=== PATIENT | female | born 1930 | race Caucasian/White ===

== ENCOUNTER 2018-04-05 21:41 | Emergency (ER) | payer MEDICARE, MEDICAID ==
[~2018-04-05] VITALS: Ht 157.5 cm; Wt 49.9 kg
--- NOTE | 2018-04-05 23:00 | NUR ---
ED Nurse Note: pt brought in by DAVIDE, per EMS report, pt was in bus for a while and at the end of bus stop pt didn't get off and stayed, business applications specialist called JERI, and when [employer] asked where she stays, she stated she can't remember where she stays at and unable to recall. [employer] drove pt around for two hours but unable to find out where she stays. [employer] called JOSUÉD and pt was brought into ED, pt currently has no medical complaints, denies marsh/pain/head injury/syncope/loc. Pt AA&ox4, gcs=15. Noted pt wearing a wristband with phone number and pt's name on it. Upon calling the halfway, [facility] in [place], one of the direct care supervisor stated she was discharged on feb 21 and hasn't heard from her. Pt refused to state where she is going and refused to give information regarding pt's family member states "They are already in critical condition and going through a lot, don't call them". Attempted contacting friend Valentin, pt's friend states he was unaware of pt's conditon and location. Pt was provided with sandwich and juice, refused to go into room and states she wants to stay in chair. vss. airway intact and resp even and unlabored. will cont monitor.
--- NOTE | 2018-04-06 01:28 | Emergency Room Report ---
History of Present Illness General Source: Patient Present Illness HPI This is an 88-year-old female with no past medical history. She presents with chief complaint of general exam. She was on the bus all day. When the route end, she was still there so channel business manager called 911. Patient does not know where she lives so police call ambulance. Denies any complaint. She said that she lives in [place] and did not give a particular address. She was only giving the bus route. She refused to divulge any information regarding family a phone number. She would not let me look into her luggage. She did have an armband with a phone number on it. Paramedics said when they called this number it was a jail in [place]. I called his phone number and spoke with the nurse who remembered her. She was admitted there at the end of January and discharge February 21. He was able to get information on the next of kin. I called the number listed as next of kin and spoke with that person. He said that he is a distant cousin and patient lists his number and address for next of kin. He received her male and she will occasionally coming get it. He said that patient has nowhere to live. She goes back and forth from [place] to [place]. She will occasional stay in a jail or hospital. She does have a family member in [place]. He does not know the name. Patient said she does not want to call anybody. 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 She denies any pain. She denies any medical problem. She does not give me the rights to contact anybody. Patient History Past Medical History: see triage record, old chart reviewed Past Surgical History: other Pertinent Family History: none Social History: Denies: smoking Now: No Immunizations: other Reviewed Nursing Documentation: PMH: Agreed; PSxH: Agreed Review of Systems Eye: Denies: eye pain, blurred vision ENT: Denies: ear pain, nose congestion, throat swelling Respiratory: Denies: cough, shortness of breath Cardiovascular: Denies: chest pain, palpitations Gastrointestinal: Denies: abdominal pain, diarrhea, nausea, vomiting Musculoskeletal: Denies: back pain, joint pain Skin: Denies: rash Neurological: Denies: headache, numbness Endocrine: Denies: increased thirst, increased urine Hematologic/Lymphatic: Denies: easy bruising All Other Systems: negative except mentioned in HPI Physical Exam patient refused vitals Sp02 EP Interpretation: reviewed, normal General Appearance: well appearing, no apparent distress, alert Head: normocephalic, atraumatic Eyes: bilateral eye PERRL, bilateral eye EOMI ENT: hearing grossly normal, normal pharynx Neck: full range of motion, supple, no meningismus Respiratory: chest non-tender, lungs clear, normal breath sounds Cardiovascular #1: regular rate, rhythm, no murmur Gastrointestinal: normal bowel sounds, non tender, no mass, no organomegaly, no bruit, non-distended Musculoskeletal: back normal, gait/station normal, normal range of motion Psychiatric: mood/affect normal Skin: warm/dry Medical Decision Making Diagnostic Impression: Primary Impression: General medical examination ER Course Patient here because she has nowhere to go. She is technically homeless. Patient doesn't want to be admitted to the hospital. She does not want to be sent to a jail or skilled nursing. She is alert oriented 3. She is clean and dress properly. She just want to sit here and eat a sandwich and said that she will leave in the morning. Because of her age, I wanted to check labs and possible admission to a jail. I feel that is not safe for her to be in the street. Patient is adamant about not getting the blood work done or being admitted for sent to jail. Patient said that she is not homeless. She said that she knows where she is going. She refused to arrival was that to me. She may have some underlying psych issue or mild dementia. However she is able to answer questions appropriately. She knows where she is, date, president, and other questions that I ask her. Because of this, I felt that the patient is competent to make the decision to refuse care and admission. I spoke with only contact number that I obtained and the person said that she does this all the time. Somehow, she always make it to his place to sweet pickled fruit maker her mail. Status: improved Disposition: HOME, SELF-CARE Condition: Stable Additional Instructions: Follow-up with your doctor in 7 days. Return if symptom worsen. Abelardo Tinoco MD Apr 06, 2018 01:28
[2018-04-06] MEDS ORDERED: LISINOPRIL5 MG ORAL (01:59)
[2018-04-06] MEDS ORDERED: GABAPENTIN800 MG ORAL (01:59)
--- NOTE | 2018-04-06 02:00 | NUR ---
ED Nurse Note: pt resting comfortably at this time, vss, will cont monitor.
[2018-04-06 03:03] VITALS: BP 148/73
--- NOTE | 2018-04-06 03:04 | NUR ---
ED Nurse Note: report given to Josefina and endorsed care. vss, airway intact, resp even and unlabored.
--- NOTE | 2018-04-06 04:19 | NUR ---
ED Nurse Note: Pt in bed asleep. No distress noted. Respirations even and unlabored. Will continue to monitor.
[2018-04-06 05:20] VITALS: BP 139/68
--- NOTE | 2018-04-06 06:43 | NUR ---
ED Nurse Note: Pt still in gurney asleep. No dsitress noted. Even, unlabored respirations. Per my CN, will allow pt to sleep longer and possibly see the social work coordinator prior to discharge. Will endorse to day shift RN.
--- NOTE | 2018-04-06 07:12 | NUR ---
HAND-OFF: Report given to Fatemeh PHILIPPE. Endorsed pt needing to see social media community manager prior to discharge. Pt awoken during shift report, ambulating to the restroom steady. Pt stable.
--- NOTE | 2018-04-06 07:31 | NUR ---
Eugenia trevino in EDM - 04/06/18 at 0732 by CHRISTOPHE ED Nurse Note: Pt sitting on her bed, AAO x4, follows commands. Pt is aware that she is waiting for a adoption social worker evaluation. Pt
--- NOTE | 2018-04-06 07:33 | NUR ---
ED Nurse Note: Pt sitting on her bed, AAO x4, follows commands. No acute distress. Pt is aware that she is waiting for a aids social worker evaluation. Pt unable to recall her exact home address or the street but states that she stays in a facility [facility]. Charge nurse Marilin livingston.
--- NOTE | 2018-04-06 07:47 | NUR ---
ED Nurse Note: Breakfast provided to patient. Pt refused to give information if she has any relative that we can call and states she has no friends here. Charge nurse notified.
[2018-04-06 08:00] VITALS: BP 128/77
--- NOTE | 2018-04-06 08:00 | NUR ---
ED Nurse Note: Spoken to Eliza of formerly [facility] that the patient stays with them and they are open at any time. The facility is aware that the patient will go back and C will arrange for transportation. Charge nurse Marilin notified.
--- NOTE | 2018-04-06 10:00 | NUR ---
Social Service Note HERO met with patient to assess for homelessness. Patient is alert, oriented but forgetful and verbally responsive. Patient states she is orginally from [place] and decided to take the train to [place] to try something new. Patient didn't have a housing plan when she arrived. Patient cannot recall who placed her in a transitional housing program. Patient states she could remember the name or location of facility because she has only been there 2 days. Nurse located address and phone number of [facility] transitional [address] [address], . HERO spoke with Sylvester at [facility] and confirmed that patient could return to this location. Sylvester was unable to provide additional information as their coordinator was not available at this time. Patient states she doens't have a PMD in [place] and is not in need of follow up medical intervention. Patient states her physician's are in [place] and that is where she will go for follow up as needed. Patient denies mental health disorder. Taxi transportation will be provided to [facility]. Patient is in agreement with dc plan. HERO discussed with primary nurse and charge nurse.
[2018-04-06 10:04] VITALS: BP 136/78
--- NOTE | 2018-04-06 10:04 | NUR ---
ED Nurse Note: Pt cleared by health care provider for discharge. ACI given and explained to pt and verbalized understanding. All medical devices such as ID band removed. Pt left with all personal belongings. Pt is AAO x4 and ambulates with steady gait and left with taxi for transportation. Pt will go back to [facility].
== END 2018-04-06 10:04 | disposition home or self-care (01) ==
LOC: EDBD 21:41 → EMR 21:55
DX: Z00.00 Encounter for general adult medical examination without abnormal findings (principal); Z59.0 Homelessness
CPT/HCPCS: 99283